=== PATIENT | female | born 2000 | race Caucasian/White ===

== ENCOUNTER 2018-03-22 20:25 | Emergency (ER) | payer OTHER, SELFPAY ==
[2018-03-22 20:27] VITALS: BP 121/66; PULSE 105; RESP 18; TEMP 36.9; O2SAT 97; BMI 19.1
--- NOTE | 2018-03-22 20:35 | RAD_ITS ---
STUDY: X-RAY - RIGHT WRIST REASON FOR EXAM: Female, 17 years old. Pain of the wrist after traumatic injury. TECHNIQUE: 3 view(s) of the wrist were obtained. COMPARISON: None. FINDINGS: Normal visualized distal radius and ulna. Normal radiocarpal articulation. Normal distal radioulnar articulation. Normal carpal bones. Normal carpal articulations. Normal carpometacarpal articulation of the thumb. Normal second through fifth carpometacarpal articulations. Normal visualized metacarpal bones. The soft tissue structures are unremarkable. There is no demonstrated acute fracture. RAD/Wrist min 3 Views IMPRESSION: Normal x-ray examination of the wrist. Electronically Signed: Lisa George MD at 21:07 EST , Service support ,
--- NOTE | 2018-03-22 22:36 | ED.RN ---
PT CALLED TO TAKE BACK TO ROOM, NO ANSWER. PT LWBS.
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
== END 2018-03-22 22:36 | disposition left against medical advice (07) ==
LOC: ED 23:43
PROVIDERS: Emergency Provider Emergency Medicine
DX: M25.531 Pain in right wrist (principal); Z53.21 Procedure and treatment not carried out due to patient leaving prior to being seen by health care provider
CPT/HCPCS: 73110; 99283

== ENCOUNTER 2018-03-23 19:53 | Emergency (ER) | payer SELFPAY ==
[2018-03-22 20:27] VITALS: BMI 19.1
[2018-03-23 19:54] VITALS: BP 107/72; PULSE 100; RESP 18; TEMP 36.9; O2SAT 95; BMI 19.1
--- NOTE | 2018-03-23 20:50 | ED.DCSUM_ITS ---
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 her in the right wrist region she was seen in the emergency department, she did not and does not want to make this workers comp related, she indicates she left the emergency department yesterday before the x-ray report was available she is been wearing a thumb spica splint there is been no new issues or complaints or concerns she wants to know the results of the x-ray and she wants a work release for light duty Physical Examination: [] 107/80 General, no distress resting comfortably HEENT is generally unremarkable The neck is supple no adenopathy Cardiovascular, regular rate and rhythm Lungs, clear bilateral Abdomen, soft nontender Extremities, no clubbing cyanosis or edema, vague nonspecific pain to the right wrist there is no instability deformity hand function finger function thumb function unremarkable forearm and elbow are unremarkable Neurologic, awake alert answering questions appropriately moving all 4 extremities Test Results: [] Emergency Department Course and Treatment: [] X-rays per radiology show nothing acute I explained that her she will continue to wear the thumb spica splint she will be given a work release as above she will follow-up with Dr. Abbasi as of explained the concept of an occult injury Tylenol Naprosyn [id number] Treatment Plan: [] Disposition: [] Home stable Impression: [] Right wrist injury at work This note was generated with [employer] dictation software. It may contain incorrect words, spelling, and punctuation that were not noted in review of the chart prior to signing ED Disposition - Plan for ED Patient: Chief Complaint: Upper Extremity Injury Referrals: Care Physician,No Primary [Primary Care Provider] -
--- NOTE | 2018-03-23 20:50 | ED.DEP ---
ED Disposition - Plan for ED Patient: Chief Complaint: Upper Extremity Injury Instructions: ED Sprain Wrist Referrals: Care Physician,No Primary [Primary Care Provider] - Clive Abbasi MD [STAFF PHYSICIAN] -
[2018-03-23 21:12] VITALS: BP 119/64; PULSE 79; RESP 16; O2SAT 100
--- NOTE | 2018-03-23 21:12 | ED.RN ---
THIS NURSE REVIEWED D/C INSTRUCTIONS WITH PT. PT VERBALIZED UNDERSTANDING OF INSTRUCTIONS. PT DENIES FURTHER NEEDS OR QUESTIONS AT THIS TIME. PT AMBULATES FROM ROOM ON OWN WITHOUT ASSISTANCE FROM STAFF
--- OUTSIDE RECORDS SUMMARY | 2018-05-09 15:22 | XMS RPT_ITS ---
:2000 Author Organization [facility] Care Team Providers Name Role Phone Primay Care Physicia, No Primary Care Unavailable Dallin Trinh Attending Unavailable Primay Care Physicia, No Primary Care Unavailable Abisai Lott Attending Unavailable PROBLEMS PROBLEMS No Problem Records FoundPROCEDURES PROCEDURES No Procedure Records FoundRESULTS RESULTS EMERGENCY DEPARTMENT Observed: 03/23/2018 Status: F Source: [place] SUMMARY 11:19 PM [facility] REPOSITORY [facility] Medical Records Department [address] [place] [address] Emergency Department Summary 03/23/188 MR#: [id number] Acct: [id number] Name: JW CHRISTY Rep #: [id number] : 2000 17 From: Abisai Lott MD [...] concept of an occult injury Tylenol Naprosyn [id number] Treatment Plan: [] Disposition: [] Home stable Impression: [] Right wrist injury at work This note was generated with [employer] dictation software. It may contain incorrect words, [...] your Primary Care Provider. Call [facility] ([phone]) or report to the closest Emergency Room. Call 911 if necessary. 03/23/18 7272 <Electronically signed by Abisai Lott MD> Date Abisai Lott MD Cosigner Signature (If Indicated): Date CC: No Primary Care Physician DISCHARGE INSTRUCTION Observed: 03/23/2018 Status: F Source: [place] 8:51 PM [facility] Medical Records Department [address] [place] [address] Discharge Instruction 03/23/182049 MR#: [id number] Acct: [id number] Name: JW CHRISTY Rep #: [id number] : 2000 17 From: Abisai Lott MD [...] your Primary Care Provider. Call [facility] ([phone]) or report to the closest Emergency Room. Call 911 if necessary. 03/23/182050 <Electronically signed by Abisai Lott MD> Date Abisai Lott MD Cosigner Signature (If Indicated): Date CC: No Primary Care Physician WRIST MIN 3 VIEWS Observed: 03/22/2018 Status: F Source: TI 8:30 PM [facility] Imaging Services [address] [place] [address] Wrist min 3 Views MR#: [id number] Acct: [id number] Name: JW CHRISTY Rep #: [id number] : 2000 F 17 From: Lisa George MD PCP: Care Physician, No Primary Status: PRE ER Study: Wrist min 3 Views Date of Exam: 03/22/18 Exam# [id number] Ordering Dr: Provider,Ed P. STUDY: X-RAY - [...] No Primary Care Physician; ED PHYSICIAN PROVIDER Supervisor Polishing: Signed ALLERGIES ALLERGIES DATE TYPE / CODE NAME / CODE REACTION SEVERITY SOURCE 03/23/2018 Drug No Known Unknown [facility] Allergy/4160 Allergies/F00 [facility] [address](SNOMED [id number](RXNOR Repository CT) M) ENCOUNTERS ENCOUNTERS ADMIT/DISCHARGE ACCOUNT ADMITTING ENCOUNTER LOCATION SOURCE NUMBER CLASS 03/23/2018/ [id number] Emergency [address] ing:ED Repository 03/22/2018/ [id number] Emergency [address] ing:ED Repository PAYERS PAYERS ENCOUNTER GUARANTOR PAYER SUBSCRIBER SOURCE 03/23/2018 JW [id number] Primary NOT GIVENUNK Ti MURRAY, Insurance:SELF PAY [facility] [address]Yex: [facility] Number: Effective Repository (HP) Date:2018-03-23 03/22/2018 JW [id number] Primary Insurance:GIANCARLO Cruz [id number] MCKNIGHTDOB: [facility] [address]Obh: Number: [id number] [id number] Repository (HP) Date:9406-34-59[facility] [address], [place] [address]CA: 03/22/2018 Secondary NOT GIVENGITA Luke Insurance:SELF PAY [facility] Number: Effective Repository Date:2018-03-22
== END 2018-03-23 21:13 | disposition home or self-care (01) ==
LOC: ED 20:35
PROVIDERS: Emergency Provider Emergency Medicine
DX: S69.91XA Unspecified injury of right wrist, hand and finger(s), initial encounter (principal); W22.8XXA Striking against or struck by other objects, initial encounter; Y93.9 Activity, unspecified; Y92.63 Factory as the place of occurrence of the external cause; Y99.0 Civilian activity done for income or pay
CPT/HCPCS: 99282

== ENCOUNTER 2025-02-14 09:28 | Emergency (ER) | payer BC, SELFPAY ==
[2025-02-14 09:30] VITALS: BP 141/83; PULSE 98; RESP 16; TEMP 36.9; O2SAT 100; BMI 17.7
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
--- NOTE | 2025-02-14 10:14 | ED.RN ---
mom will be here in approx one hr, she will drive pt home.
[2025-02-14] MEDS: HYDROcodone Bitartrate/Apap 5/325 Tablet PO (10:16)
--- NOTE | 2025-02-14 10:20 | RAD_ITS ---
PROCEDURE: RAD/Ribs Uni Min 3V w/PA Chest
[2025-02-14 11:11] VITALS: BP 116/80; PULSE 77; RESP 16; TEMP 36.9; O2SAT 100
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
== END 2025-02-14 11:12 | disposition home or self-care (01) ==
PROVIDERS: Emergency Provider Emergency Medicine; Visit Provider Emergency Medicine
DX: S20.20XA Contusion of thorax, unspecified, initial encounter (principal); F17.290 Nicotine dependence, other tobacco product, uncomplicated; Y04.8XXA Assault by other bodily force, initial encounter
CPT/HCPCS: 71101; 99282

== ENCOUNTER 2025-02-18 16:58 | Emergency (ER) | payer BC, SELFPAY ==
[2025-02-18 16:59] VITALS: BP 145/103; PULSE 86; RESP 30; TEMP 36.3; O2SAT 100; BMI 19.5
--- NOTE | 2025-02-18 17:39 | CT_ITS ---
PROCEDURE: CTA CHEST W/WO CONTRAST 02/18/2025 REASON FOR EXAM: CHEST PAIN INJURY R/O MEDIASTINAL VASCULAR INJURY TECHNIQUE: Procedure Code: [id number] Modality: CT Procedure: CTA CHEST W/WO CONTRAST Multiplanar Sagittal and Coronal images were obtained. 3D reconstructions CONTRAST: The amount of contrast given was not indicated One or more dose reduction techniques were used (e.g., Automated exposure control, adjustment of the mA and/or kV according to patient size, use of iterative reconstruction technique). RADIATION DOSE SUMMARY: CTDlvol: 10 mGy DLP: 137 mGycm FINDINGS: Images are presented non anatomically from inferior to superior. No lung windows are supplied. Normal thoracic aortic contour. No coronary artery calcification. No thoracic injury. No dissection. Images of the upper abdominal aorta are unremarkable. There is no pulmonary contusion. There is no pneumothorax. There is no thoracic compression deformity or subluxation. The sternum is intact. CT/CTA Chest W/WO Contrast IMPRESSION: No abnormality Reading Location: [facility]
--- NOTE | 2025-02-18 17:40 | EKG12_ITS ---
Test Reason : Blood Pressure : */* mmHG Vent. Rate : 75 BPM Atrial Rate : * BPM P-R Int : * ms QRS Dur : 86 ms QT Int : 388 ms P-R-T Axes : * 76 35 degrees QTcB Int : 433 ms NSR WITH PACS AND SINUS RHYTHM BASELINE ARTIFACT Otherwise normal ECG Confirmed by Rubén Gonzalez ([id number]), news videotape editor [facility] BORREGO ([id number]) on 02/19/2025 11:46:35 AM Referred By: Confirmed By: Rubén Gonzalez
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
[2025-02-18 18:09] LABS: Hematocrit 40.9 % (37-47); Hemoglobin 13.4 g/dL (12.0-15.0); Immature Granulocytes Count 0.020 X10^3/uL (0.0-0.0); Mean Corp Hgb Conc 32.8 g/dL (32-36); Mean Corpuscular Volume 92.3 fL (81-99); Mean Platelet Vol. 10.9 fl (6.2-12.0); NRBC Flagged by Analyzer 0 % (0-5); Platelet Count 217 K/mm3 (150-450); RBC Distribution Width CV 14.5 % (11.6-14.6); RBC Distribution Width SD 48.8 fl (35.1-43.9); Red Blood Count 4.43 M/mm3 (4.2-5.4); White Blood Count 6.7 K/mm3 (4.4-11.0)
[2025-02-18] MEDS: Ketorolac 30 MG/ML Syringe IV (18:33)
[2025-02-18 18:40] VITALS: BP 120/88; PULSE 79; RESP 20; O2SAT 100
[2025-02-18 18:45] LABS: Anion Gap 10 (5-15); BUN 24 mg/dL (4-19); BUN/Creat Ratio 30.3 RATIO (10-20); Calcium,Total 9.2 mg/dL (7.6-11.0); Carbon Dioxide 30.0 mmol/L (21.0-32.0); Chloride 99 mmol/L (98-108); Estimated Creatinine Clearance 79.67 ml/min (50-250); Glucose 110 mg/dL (70-99); Potassium 4.1 mmol/L (3.3-5.1); Troponin T High Sensitivity 118 ng/L (<=14)
[2025-02-18 20:00] VITALS: BP 106/56; PULSE 87; RESP 18; O2SAT 97
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
--- NOTE | 2025-02-18 20:50 | ED.RN ---
This RN received a phone call from a entry level lab technician who informed me that the patient's BMP and CBC blood tubes were mixed up with another patient's blood tubes. This RN asked the entry level lab technician if this patient's labs were accurate and unharmed by this mistake. The entry level lab technician assured this RN that this patient's blood work results were not impacted and will be accurate. Charge nurse notified.
[2025-02-18 21:19] LABS: Troponin T High Sens 2 HR 8 ng/L (<=14)
[2025-02-18 21:56] VITALS: BP 120/88; PULSE 87; RESP 18; TEMP 36.4; O2SAT 100
== END 2025-02-18 22:02 | disposition home or self-care (01) ==
PROVIDERS: Emergency Provider Emergency Medicine; Visit Provider Emergency Medicine
DX: S20.20XA Contusion of thorax, unspecified, initial encounter (principal); R07.9 Chest pain, unspecified; F41.9 Anxiety disorder, unspecified; F32.A Depression, unspecified; F17.290 Nicotine dependence, other tobacco product, uncomplicated; Z79.899 Other long term (current) drug therapy; Y04.8XXA Assault by other bodily force, initial encounter
CPT/HCPCS: 71275; 80048; 84484; 85025; 93005; 96374; 96375; 96376; 99283; Q9967; A4216